=== PATIENT | female | born 1960 | race African-American/Black ===

== ENCOUNTER → 2016-12-03 | Outpatient (CLI) | payer OTHER ==
--- NOTE | 2016-12-03 09:40 | RAD ---
DATE: 12/03/2016 EXAM: DIGITAL SCREEN BILAT W/CAD HISTORY: Screening COMPARISON: 04/18/2015 This study was interpreted with the benefit of Computerized Aided Detection (CAD). FINDINGS: The breast parenchyma shows scattered fibroglandular densities. Breast parenchyma level B. There has not been a significant change in the appearance of the breasts compared to the previous exam IMPRESSION: Benign findings BI-RADS CATEGORY: 2 BENIGN FINDING(S) RECOMMENDED FOLLOW-UP: 12M 12 MONTH FOLLOW-UP PQRS compliance statement: Patient information was entered into a reminder system with a target due date 12/03/2017 for the next mammogram. Mammography is a sensitive method for finding small breast cancers, but it does not detect them all and is not a substitute for careful clinical examination. A negative mammogram does not negate a clinically suspicious finding and should not result in delay in biopsying a clinically suspicious abnormality. "Our facility is accredited by the [employer] Mammography [employer]."
== END | disposition home or self-care (01) ==
LOC: MAMMO 10:07
PROVIDERS: ATTEND Internal Medicine
DX: Z12.31 Encounter for screening mammogram for malignant neoplasm of breast (principal)
CPT/HCPCS: 77052; G0202; 77067

== ENCOUNTER → 2017-10-24 | Outpatient (CLI) | payer OTHER ==
--- NOTE | 2017-10-24 10:14 | RAD ---
Knee x-rays Indication: Bilateral knee pain for long time. Degenerative disease of both knees. Technique: 3 views of the bilateral knees Comparison: Previous study from 2006 Findings: Left knee: No acute fracture or dislocation. Productive changes in the form of bony spurs is seen in all 3 compartments of the knee joint. No significant joint space narrowing. No suprapatellar effusion. Right knee: No acute fracture or dislocation. Productive changes in the form of bony spurs is seen in all 3 compartments of the knee joint with narrowing of the medial and patellofemoral joint compartment. No suprapatellar effusion. Impression: Moderate tricompartmental osteoarthritis of the knee joint.
== END | disposition home or self-care (01) ==
LOC: RAD 09:22
PROVIDERS: ATTEND Internal Medicine
DX: M17.0 Bilateral primary osteoarthritis of knee (principal)
CPT/HCPCS: 73562